=== PATIENT | male | born 1955 | race African-American/Black ===

== ENCOUNTER 2017-06-03 14:31 | Observation (INO) | payer MEDICARE ==
[2017-06-03] MEDS ORDERED: Nitroglycerin 0.4 MG TAB (25 Tab Bottle) ONE (14:54)
[2017-06-03 14:57] LABS: #Eosinphils 0.2 thou/uL (0.0-0.7); #Lymphocytes 1.7 thou/uL (1.20-3.40); #Monocytes 0.5 thou/uL (0.11-0.59); #Neutrophils 3.9 thou/uL (1.40-6.50); %Basophils 0.5 % (0.0-1.0); %Lymphocytes 27.7 % (21.0-51.0); %Monocytes 7.2 % (0.0-10.0); %Neutrophils 61.6 % (42.0-75.0); Hemoglobin 12.4 g/dL (14.0-18.0); Mean Corpuscular HGB CONC 31.5 g/dL (32.0-36.0); Mean Corpuscular Hemoglobin 28.9 pg (27.0-31.0); Mean Corpuscular Volume 91.6 fl (80.0-94.0); Mean Platelet Volume 8.7 fL (7.4-10.4); Platelet Count 154 thou/uL (130-400); RBC Distribution Width 13.1 % (11.5-14.5); White Blood Cell (WBC) Count 6.3 thou/uL (4.8-10.8)
[2017-06-03 15:16] LABS: ALT (SGPT) 7 U/L (8-55); AST (SGOT) 13 U/L (5-34); Albumin 3.9 g/dL (3.4-4.8); Alkaline Phosphatase 70 U/L (40-150); Anion Gap 21 mmol/L (10-20); BUN (Urea Nitrogen) 70 mg/dL (8.4-25.7); Bilirubin, Total 0.8 mg/dL (0.2-1.2); CK (CPK) 176 U/L (30-200); Calc. Creatinine Clearance 0 mL/min (70-130); Calcium 9.1 mg/dL (7.8-10.44); Carbon Dioxide 21 mmol/L (23-31); Chloride 102 mmol/L (98-107); Estimated GFR-MDRD 4; Globulin 3.9 g/dL (2.4-3.5); Glucose 79 mg/dL (80-115); Potassium 4.8 mmol/L (3.5-5.1); Protein, Total 7.8 g/dL (5.8-8.1); Sodium 139 mmol/L (136-145)
[2017-06-03 15:19] LABS: CKMB 1.5 ng/mL (0-6.6); Troponin I 0.076 ng/mL (< 0.028)
--- NOTE | 2017-06-03 16:09 | RAD ---
RADIOGRAPH CHEST 1 VIEW: HISTORY: 61-year-old male with acute chest pain. FINDINGS: There are no air space densities, pulmonary edema, pneumothorax, or cardiomegaly. The lateral costop hrenic angles are sharp. There is a single lead left subclavian AICD. IMPRESSION: 1. No acute cardiopulmonary findings. 2. Automatic implantable cardioverter/defibrillator ryanne POS: [facility]
[2017-06-03] MEDS ORDERED: Nitroglycerin 0.4 MG TAB (25 Tab Bottle) SL PRN (17:10)
[2017-06-03] MEDS ORDERED: traMADol HCl 50 MG TAB PO PRN (17:10)
[2017-06-03] MEDS ORDERED: Loratadine 10 MG TAB PO PRN (17:10)
[2017-06-03] MEDS ORDERED: Diabetic Tussin 200 MG/10 ML UDCUP PO PRN (17:10)
[2017-06-03] MEDS ORDERED: Ondansetron HCl/PF 4 MG/2 ML Vial IVP PRN (17:10)
[2017-06-03] MEDS ORDERED: Mag-Al 1200 mg/1200 mg/30 ML UDCUP PO PRN (17:10)
[2017-06-03] MEDS ORDERED: cloNIDine 0.1 MG TAB PO PRN (17:10)
[2017-06-03] MEDS ORDERED: Calcium Carbonate 500 MG ChewTAB PO PRN (17:10)
[2017-06-03] MEDS ORDERED: Lorazepam 1 MG TAB PO PRN (17:10)
[2017-06-03] MEDS ORDERED: hydrALAZINE 20 MG/ML VIAL SLOW IVP PRN (17:10)
[2017-06-03] MEDS ORDERED: Senokot 8.6 MG TAB PO PRN ×2 (17:10)
[2017-06-03] MEDS ORDERED: Benzonatate 100 MG CAP PO PRN (17:10)
[2017-06-03] MEDS ORDERED: Bisacodyl 5 MG TAB PO PRN ×2 (17:10)
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
[2017-06-03 17:22] VITALS: BMI 30.5
[2017-06-03] MEDS: Acetaminophen 325 MG TAB PO PRN (18:16)
[2017-06-03 18:58] LABS: Troponin I 0.087 ng/mL (< 0.028)
[2017-06-03] MEDS: Heparin 5,000 UNITS/ML VIAL SC SCH (19:35)
[2017-06-03 21:09] LABS: Troponin I 0.074 ng/mL (< 0.028)
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
[2017-06-04 02:49] VITALS: TEMP 98.1
[2017-06-04 04:57] LABS: #Eosinphils 0.1 thou/uL (0.0-0.7); #Lymphocytes 1.3 thou/uL (1.20-3.40); #Monocytes 0.4 thou/uL (0.11-0.59); #Neutrophils 3.5 thou/uL (1.40-6.50); %Basophils 0.2 % (0.0-1.0); %Eosinophils 2.7 % (0.0-10.0); %Lymphocytes 24.3 % (21.0-51.0); %Monocytes 6.6 % (0.0-10.0); %Neutrophils 66.1 % (42.0-75.0); Hemoglobin 11.8 g/dL (14.0-18.0); Mean Corpuscular HGB CONC 32.4 g/dL (32.0-36.0); Mean Corpuscular Hemoglobin 28.9 pg (27.0-31.0); Mean Corpuscular Volume 89.4 fl (80.0-94.0); Mean Platelet Volume 8.2 fL (7.4-10.4); Platelet Count 140 thou/uL (130-400); Red Blood Cell (RBC) Count 4.09 mill/uL (4.70-6.10); White Blood Cell (WBC) Count 5.3 thou/uL (4.8-10.8)
[2017-06-04 05:21] LABS: Anion Gap 18 mmol/L (10-20); BUN (Urea Nitrogen) 80 mg/dL (8.4-25.7); Calc. Creatinine Clearance 6 mL/min (70-130); Calcium 8.7 mg/dL (7.8-10.44); Carbon Dioxide 22 mmol/L (23-31); Chloride 104 mmol/L (98-107); Estimated GFR-MDRD 4; Glucose 76 mg/dL (80-115); Potassium 4.5 mmol/L (3.5-5.1); Sodium 139 mmol/L (136-145)
[2017-06-04 05:40] LABS: HBSAg Index 0.22 S/CO (0-0.99); Hep B Surf Ag Non-Reactive S/CO (NonReactive)
[2017-06-04 07:51] LABS: Hep B Surf AB Reactive (NonReactive)
--- NOTE | 2017-06-04 08:56 | PRG ---
DATE OF SERVICE: 06/04/2017 SUBJECTIVE: Mr. Orozco is a 61-year-old black male with ESRD and currently on maintenance hemodialysi s. I am at the bedside supervising his dialysis. The patient was admitted for chest pain with some mild shortness of breath. He is being ruled out for myocardial infarction. He has no new complaints today. He tells me the chest pain and shortness of breath is much improved. PHYSICAL EXAMINATION: VITAL SIGNS: Blood pressure 156/83, heart rate 85, respiratory rate 20, temperature 98.1, pulse ox 9 2%. GENERAL EXAM: Noted to be awake, alert, comfortable, not in distress. SKIN: Adequate turgor. HEENT: Pinkish conjunctivae, anicteric sclerae. NECK: No neck mass, no carotid bruits, no JVD. CHEST: No deformities. LUNGS: Clear breath sounds, no wheezing, no crackles. HEART: Normal sinus rhythm. No murmur, no gallops, no rubs. ABDOMEN: Globular, soft, nontender, no masses. EXTREMITIES: No edema, no deformities. Medications of 06/04/2017 reviewed. LABORATORY DATA: Laboratories of 06/04/2017, white count 5.3, hemoglobin 11.8, sodium 139, potassium 4.5, chloride 104, carbon dioxide 22, BUN 80, creatinine 15.7, glucose 76, calcium 8.7. Troponin I is 0.074. BNP is 1117.7. ASSESSMENT AND PLAN: 1. End-stage renal disease, stable. Continuing current Sunday, Sunday, Sunday hemodialysis regim en. Again, fluid removal only as tolerated. Targeting 3.5 liters of fluid today. 2. Chest pain/shortness of breath, clinically improved. Agree with current management.
[2017-06-04] MEDS: Heparin 5,000 UNITS/ML VIAL SC SCH (11:20)
[2017-06-04] MEDS: Acetaminophen 325 MG TAB PO PRN (14:10)
[2017-06-04] MEDS ORDERED: HYDROcodone/Acetaminophen 10/325 mg Tablet PO PRN (14:18)
[2017-06-04] MEDS ORDERED: hydrALAZINE 25 MG TAB PO SCH (15:00)
[2017-06-04] MEDS ORDERED: cloNIDine 0.2 MG TAB PO SCH (15:00)
[2017-06-04 15:21] VITALS: BP 139/95
[2017-06-04] MEDS ORDERED: Sevelamer Carbonate 800 MG TAB PO SCH (17:00)
[2017-06-04] MEDS ORDERED: Ezetimibe 10 MG TAB PO SCH (21:00)
[2017-06-04] MEDS ORDERED: Carvedilol 25 MG TAB PO SCH (21:00)
--- NOTE | 2017-06-04 21:10 | DIS ---
DATE OF ADMISSION: 06/03/2017 DATE OF DISCHARGE: 06/04/2017 DISCHARGE DIAGNOSES: 1. Acute volume overload secondary to end-stage renal disease. 2. Acute dyspnea secondarily to #1, resolved. 3. End-stage renal disease with hemodialysis, stable. 4. Hypertension, labile. 5. Question of cardiomyopathy, status post AICD placement, normal functioning device. CONSULTATION: Dr. Blanchard with Nephrology Service. PERTINENT LABORATORY AND X-RAY FINDINGS: Creatinine ranged between 14.82-15.73 with estimated GFR of 4. Calcium ranged between 8.7-9.1. Potassium ranged between 4.5-4.8. Troponin I ranged between 0. 074-0.087. BNP 1118, previously noted 110 on 09/12/2013. Plasma alcohol level less than 10. Hepati tis B antigen and antibody negative. Portable chest x-ray dated 06/03/2017 showed no acute cardiopul monary process. HOSPITAL COURSE: Patient was observed on the telemetry unit after presenting with acute shortness of breath and chest pain. The patient was noted with volume overload in the context of end-stage renal disease, undergoing hemodialysis at the direction of Nephrology Service. The patient tolerated hemo dialysis without further complication, but was noted with labile hypertension, improving with overall volume removal. The patient was resumed on his home antihypertensive regimen with overall stabiliza tion of blood pressure trend. The patient underwent general evaluation of his AICD device showing no rmal functioning mechanism. The patient also underwent 2D transthoracic echocardiogram with final re sults pending at the time of this dictation. Overall, patient is overall clinically stable with tele metry monitoring showing a sinus mechanism without evidence of acute arrhythmia or dysrhythmia. The patient overall is at baseline functional status with stable vital signs and ready for discharge on 0 06/04/2017. DISCHARGE MEDICATIONS: 1. Coreg 50 mg p.o. b.i.d. 2. Clonidine 0.2 mg p.o. t.i.d. 3. Zetia 10 mg p.o. at bedtime. 4. Lasix 20 mg p.o. daily. 5. Hydralazine 50 mg p.o. t.i.d. 6. Herreid 10/325 mg 1 tab p.o. q.4-6 hours p.r.n. pain. 7. Isosorbide mononitrate 30 mg p.o. daily. 8. Lisinopril 5 mg p.o. daily. 9. Renvela 800 mg p.o. t.i.d. FOLLOWUP: Patient may follow up with his primary care provider, Dr. Jerel Vargas within 7 days of camila penny. The patient may follow up with Dr. Blanchard with Nephrology Service during hemodialysis Sunday, Sunday, and Sunday. CONDITION ON DISCHARGE: Stable. ACTIVITY: Ad arjun. DIET: Renal. CODE STATUS: FULL. DISPOSITION: Home 06/04/2017.
[2017-06-05] MEDS ORDERED: Lisinopril 5 MG TAB PO SCH (09:00)
[2017-06-05] MEDS ORDERED: Furosemide 20 MG TAB PO SCH (09:00)
== END 2017-06-04 16:42 | disposition home or self-care (01) ==
LOC: ERS 14:31 → 2SW 16:08
PROVIDERS: ADMIT Internal Medicine; ATTEND Internal Medicine
DX: Q61.2 Polycystic kidney, adult type (principal); I12.0 Hypertensive chronic kidney disease with stage 5 chronic kidney disease or end stage renal disease; E11.22 Type 2 diabetes mellitus with diabetic chronic kidney disease; N18.6 End stage renal disease; E87.70 Fluid overload, unspecified; N17.9 Acute kidney failure, unspecified; E78.5 Hyperlipidemia, unspecified; I42.9 Cardiomyopathy, unspecified; E87.2 Acidosis; R07.9 Chest pain, unspecified; I25.10 Atherosclerotic heart disease of native coronary artery without angina pectoris; K21.9 Gastro-esophageal reflux disease without esophagitis; Z87.891 Personal history of nicotine dependence; Z99.2 Dependence on renal dialysis; Z95.810 Presence of automatic (implantable) cardiac defibrillator; Z98.890 Other specified postprocedural states
CPT/HCPCS: 71045; 80048; 80053; 80307; 82550; 82553; 83880; 84484 ×2; 85025 ×2; 86706; 87340; 93005; 93306; 94760; 96374; 97139; 99285; G0378; 36415; 90935; G0257; J1644; J2405

== ENCOUNTER 2017-06-12 11:09 | Emergency (ER) | payer MEDICARE ==
[2017-06-12 11:35] LABS: #Eosinphils 0.1 thou/uL (0.0-0.7); #Lymphocytes 1.5 thou/uL (1.20-3.40); #Monocytes 0.4 thou/uL (0.11-0.59); #Neutrophils 3.4 thou/uL (1.40-6.50); %Basophils 0.4 % (0.0-1.0); %Eosinophils 2.3 % (0.0-10.0); %Lymphocytes 26.8 % (21.0-51.0); %Monocytes 7.7 % (0.0-10.0); %Neutrophils 62.8 % (42.0-75.0); Hemoglobin 12.2 g/dL (14.0-18.0); Mean Corpuscular HGB CONC 32.1 g/dL (32.0-36.0); Mean Corpuscular Hemoglobin 28.9 pg (27.0-31.0); Mean Corpuscular Volume 89.9 fl (80.0-94.0); Mean Platelet Volume 8.5 fL (7.4-10.4); Platelet Count 150 thou/uL (130-400); RBC Distribution Width 13.2 % (11.5-14.5); Red Blood Cell (RBC) Count 4.24 mill/uL (4.70-6.10); White Blood Cell (WBC) Count 5.5 thou/uL (4.8-10.8)
--- NOTE | 2017-06-12 11:38 | RAD ---
CHEST ONE VIEW: History: Chest pain. Comparison: 06-03-17 FINDINGS: Cardiac silhouette is magnified by projection. Pulmonary vasculature is slightly engorged with mild p atchy bibasilar infiltrate. Mediastinum is midline with a single lead left subclavian cardiac defibri llator. No lobar consolidation or evidence of pneumothorax. IMPRESSION: Mild pulmonary vascular congestion. POS: [facility]
[2017-06-12 11:54] LABS: INR-International Normal Ratio 1.1; PTT 36.5 SEC (22.9-36.1); Prothrombin Time 14.3 SEC (12.0-14.7)
[2017-06-12 12:04] LABS: Troponin I 0.069 ng/mL (< 0.028)
[2017-06-12 12:06] LABS: ALT (SGPT) 9 U/L (8-55); AST (SGOT) 17 U/L (5-34); Albumin 3.8 g/dL (3.4-4.8); Alkaline Phosphatase 63 U/L (40-150); Anion Gap 21 mmol/L (10-20); BUN (Urea Nitrogen) 40 mg/dL (8.4-25.7); Bilirubin, Total 0.5 mg/dL (0.2-1.2); CK (CPK) 143 U/L (30-200); Calc. Creatinine Clearance 0 mL/min (70-130); Calcium 8.7 mg/dL (7.8-10.44); Carbon Dioxide 25 mmol/L (23-31); Chloride 101 mmol/L (98-107); Estimated GFR-MDRD 6; Globulin 3.8 g/dL (2.4-3.5); Glucose 68 mg/dL (80-115); Potassium 4.5 mmol/L (3.5-5.1); Protein, Total 7.6 g/dL (5.8-8.1); Sodium 142 mmol/L (136-145)
== END 2017-06-12 15:46 | disposition home or self-care (01) ==
LOC: ERS 11:09
DX: Z45.02 Encounter for adjustment and management of automatic implantable cardiac defibrillator (principal); E78.5 Hyperlipidemia, unspecified; I12.0 Hypertensive chronic kidney disease with stage 5 chronic kidney disease or end stage renal disease; N18.6 End stage renal disease; I42.9 Cardiomyopathy, unspecified; Z79.899 Other long term (current) drug therapy
CPT/HCPCS: 71045; 80053; 82553; 83880; 84484; 85025; 85610; 85730; 93005

== ENCOUNTER 2017-07-30 06:34 | Emergency (ER) | payer MEDICARE ==
[2017-07-30 07:35] LABS: #Eosinphils 0.1 thou/uL (0.0-0.7); #Lymphocytes 1.5 thou/uL (1.20-3.40); #Monocytes 0.5 thou/uL (0.11-0.59); #Neutrophils 3.9 thou/uL (1.40-6.50); %Basophils 0.1 % (0.0-1.0); %Eosinophils 2.4 % (0.0-10.0); %Lymphocytes 24.5 % (21.0-51.0); %Monocytes 7.6 % (0.0-10.0); %Neutrophils 65.4 % (42.0-75.0); Hemoglobin 8.8 g/dL (14.0-18.0); Mean Corpuscular HGB CONC 31.1 g/dL (32.0-36.0); Mean Corpuscular Hemoglobin 27.7 pg (27.0-31.0); Mean Platelet Volume 6.8 fL (7.4-10.4); Platelet Count 199 thou/uL (130-400); RBC Distribution Width 14.1 % (11.5-14.5); Red Blood Cell (RBC) Count 3.16 mill/uL (4.70-6.10)
[2017-07-30] MEDS ORDERED: Metoprolol Tartrate 50 MG TAB ONE (07:41)
[2017-07-30 08:08] LABS: ALT (SGPT) 7 U/L (8-55); AST (SGOT) 14 U/L (5-34); Albumin 3.4 g/dL (3.4-4.8); Alkaline Phosphatase 82 U/L (40-150); Anion Gap 13 mmol/L (10-20); BUN (Urea Nitrogen) 37 mg/dL (8.4-25.7); Bilirubin, Total 0.4 mg/dL (0.2-1.2); Calc. Creatinine Clearance 0 mL/min (70-130); Calcium 9.4 mg/dL (7.8-10.44); Carbon Dioxide 25 mmol/L (23-31); Chloride 104 mmol/L (98-107); Estimated GFR-MDRD 4; Globulin 3.4 g/dL (2.4-3.5); Glucose 92 mg/dL (80-115); Potassium 4.9 mmol/L (3.5-5.1); Protein, Total 6.8 g/dL (5.8-8.1); Sodium 137 mmol/L (136-145)
[2017-07-30 08:11] LABS: CKMB 0.6 ng/mL (0-6.6); Troponin I 0.051 ng/mL (< 0.028)
--- NOTE | 2017-07-30 09:59 | RAD ---
RADIOGRAPH CHEST 1 VIEW: Date: 07/30/17 Time: 0902 HOURS HISTORY: 62-year-old male with high fever. COMPARISON: 06/12/17. FINDINGS: Sternotomy wires, prosthetic cardiac valve metallic annulus, and signs of CABG, are all new since the prior study. The left subclavian single lead AICD remains. There is a new finding of mild cardiomega ly. There is another new finding of complete silhouetting of the left hemidiaphragm and blunting of t he left lateral costophrenic angle. Minimal upper lobe pulmonary vascular prominence without ethel pu lmonary alveolar edema. Dense opacification of retrocardiac portion of left lower lobe. Mildly increa sed patchy density at right medial lung base, small. No pneumothorax. IMPRESSION: 1. Left pleural effusion and questionable small right pleural effusion. 2. Left lower lobe atelectasis versus pneumonia. 3. Evidence for coronary artery bypass graft surgery is evidence for coronary atherosclerotic diseas e. 4. Left-sided automatic implantable cardioverter-defibrillator. 5. Cardiomegaly. 6. Continued follow-up recommended. JAYA [] POS: [facility]
--- NOTE | 2017-09-07 14:44 | EKG ---
Test Reason : Blood Pressure : / mmHG Vent. Rate : 134 BPM Atrial Rate : 134 BPM P-R Int : 000 ms QRS Dur : 082 ms QT Int : 296 ms P-R-T Axes : 269 -01 138 degrees QTc Int : 442 ms Unusual P axis and short SC, probable junctional tachycardia Abnormal ECG Confirmed by AYALA CAMILO, IFRAH ([id number]), editorial clerk HUI CHU ([id number] on 09/07/2017 2:44:31 PM Referred By: Confirmed By:IFRAH CAI MD
== END 2017-07-30 10:45 | disposition home or self-care (01) ==
LOC: ERS 06:34
DX: R00.0 Tachycardia, unspecified (principal); R50.9 Fever, unspecified; I12.0 Hypertensive chronic kidney disease with stage 5 chronic kidney disease or end stage renal disease; N18.6 End stage renal disease; I42.9 Cardiomyopathy, unspecified; E78.5 Hyperlipidemia, unspecified; Z99.2 Dependence on renal dialysis; Z79.899 Other long term (current) drug therapy; Z86.74 Personal history of sudden cardiac arrest
CPT/HCPCS: 36415; 71045; 80053; 82553; 84484; 85025; 87040; 93005

== ENCOUNTER 2022-05-15 15:53 | Inpatient (IN) | payer MEDICARE, OTHER ==
[2022-05-15] MEDS ORDERED: HYDROcodone/Acetaminophen 10/325 mg Tablet PO PRN (16:42)
[2022-05-15 16:45] VITALS: BMI 29.0
[2022-05-15 17:57] LABS: ALT (SGPT) 13 U/L (8-55); AST (SGOT) 15 U/L (5-34); Albumin 3.9 g/dL (3.4-4.8); Alkaline Phosphatase 105 U/L (40-110); Anion Gap 17 mmol/L (10-20); BUN (Urea Nitrogen) 29 mg/dL (8.4-25.7); Calc. Creatinine Clearance 9 mL/min (70-130); Calcium 9.3 mg/dL (7.8-10.44); Carbon Dioxide 28 mmol/L (23-31); Chloride 100 mmol/L (98-107); Estimated GFR 5; Globulin 3.5 g/dL (2.4-3.5); Glucose 95 mg/dL (80-115); Potassium 5.3 mmol/L (3.5-5.1); Protein, Total 7.4 g/dL (5.8-8.1); Sodium 140 mmol/L (136-145)
[2022-05-15 18:19] LABS: #Eosinphils 0.1 thou/uL (0.0-0.7); #Lymphocytes 1.1 thou/uL (1.20-3.40); #Monocytes 0.4 thou/uL (0.11-0.59); #Neutrophils 3.2 thou/uL (1.40-6.50); %Basophils 0.5 % (0.0-1.0); %Eosinophils 2.4 % (0.0-10.0); %Lymphocytes 22.4 % (21.0-51.0); %Monocytes 8.7 % (0.0-10.0); %Neutrophils 65.9 % (42.0-75.0); Hemoglobin 12.9 g/dL (14.0-18.0); Hypochromia SLIGHT = 6-15 cells (100X) (0-5/hpf); MDiff Complete? YES; Mean Corpuscular Hemoglobin 27.2 pg (27.0-31.0); Mean Corpuscular Volume 87.7 fl (78.0-98.0); Mean Platelet Volume 9.1 fL (7.4-10.4); Platelet Count 103 10x3/uL (130-400); Platelet Morphology Comment Appears Decreased; Polychromasia SLIGHT = 2-3 cells (100X) (0-2/hpf); Red Blood Cell (RBC) Count 4.74 mill/uL (4.70-6.10); White Blood Cell (WBC) Count 4.9 10x3/uL (4.8-10.8)
[2022-05-15] MEDS ORDERED: Carvedilol 6.25 MG TAB PO SCH (18:45)
[2022-05-15] MEDS: traZODone HCl 50 MG TAB PO SCH (20:27)
[2022-05-15] MEDS: hydrALAZINE 25 MG TAB PO SCH (20:30)
[2022-05-15] MEDS: Carvedilol 6.25 MG TAB PO SCH (21:54)
[2022-05-16 06:07] LABS: Anion Gap 16 mmol/L (10-20); BUN (Urea Nitrogen) 37 mg/dL (8.4-25.7); Calc. Creatinine Clearance 8 mL/min (70-130); Calcium 9.1 mg/dL (7.8-10.44); Carbon Dioxide 29 mmol/L (23-31); Chloride 99 mmol/L (98-107); Estimated GFR 5; Glucose 75 mg/dL (80-115); Potassium 5.7 mmol/L (3.5-5.1); Sodium 138 mmol/L (136-145)
[2022-05-16] MEDS ORDERED: Losartan 25 MG TAB PO SCH (09:00)
[2022-05-16] MEDS ORDERED: Heparin 10,000 UNITS/ 10 ML VIAL ONE (09:03)
[2022-05-16] MEDS ORDERED: Carvedilol 6.25 MG TAB PO SCH (09:14)
[2022-05-16 09:24] LABS: HBSAg Index 0.29 S/CO (0-0.99); Hep B Core Total Ab Non-Reactive (NonReactive); Hep B Core Total Index 0.11 S/CO (0-0.79); Hep B Surf Ag Non-Reactive S/CO (NonReactive); Hep C IgG Ab Non-Reactive (NonReactive); Hep C Index 0.17 S/CO (0-0.79)
[2022-05-16 09:27] LABS: HBSAB Concentration 87.61 mIU/mL; Hep B Surf AB Reactive (NonReactive)
[2022-05-16] MEDS: Carvedilol 6.25 MG TAB PO SCH (09:41)
[2022-05-16] MEDS ORDERED: Carvedilol 25 MG TAB PO SCH (09:45)
[2022-05-16] MEDS: Aspirin 81 mg Enteric Coated Tablet PO SCH (09:53)
[2022-05-16] MEDS: hydrALAZINE 25 MG TAB PO SCH ×3 (09:53→22:27)
[2022-05-16] MEDS ORDERED: Ondansetron PF 4 MG/2 ML Vial IVP PRN (17:01)
[2022-05-16] MEDS ORDERED: CEFAZOLIN 2 GM in Sodium Chloride 0.9% 100 ML IVPB SCH (18:00)
[2022-05-16 18:57] LABS: SARS-CoV-2 NAA Rapid Test DETECTED (NotDetected)
[2022-05-16] MEDS ORDERED: Acetaminophen 500 MG TAB PO PRN (22:02)
[2022-05-16] MEDS ORDERED: Pharmacy to Dose REMDESIVIR IVPB PRN (22:23)
[2022-05-16] MEDS: traZODone HCl 50 MG TAB PO SCH (22:27)
[2022-05-16] MEDS: Carvedilol 25 MG TAB PO SCH (22:28)
[2022-05-17] MEDS ORDERED: Dextrose 50% Abboject 50 ML SYRINGE SLOW IVP PRN (00:16)
[2022-05-17] MEDS ORDERED: HumaLOG 300 UNITS/3 ML VIAL SC PRN ×2 (00:16)
[2022-05-17] MEDS ORDERED: Dextrose 5% in Water 1,000 ML IV PRN (00:16)
[2022-05-17] MEDS ORDERED: Ipratropium/Albuterol 3 ML NEB NEB PRN (00:18)
[2022-05-17] MEDS ORDERED: guaiFENesin 200 MG TAB PO PRN (01:00)
[2022-05-17 07:03] LABS: #Lymphocytes 0.3 thou/uL (1.20-3.40); #Monocytes 0.2 thou/uL (0.11-0.59); #Neutrophils 3.5 thou/uL (1.40-6.50); %Eosinophils 0.7 % (0.0-10.0); %Lymphocytes 7.3 % (21.0-51.0); %Monocytes 5.7 % (0.0-10.0); %Neutrophils 86.4 % (42.0-75.0); Hemoglobin 12.6 g/dL (14.0-18.0); Mean Corpuscular HGB CONC 31.2 g/dL (32.0-36.0); Mean Corpuscular Hemoglobin 27.2 pg (27.0-31.0); Mean Corpuscular Volume 87.2 fl (78.0-98.0); Mean Platelet Volume 9.1 fL (7.4-10.4); Platelet Count 87 10x3/uL (130-400); RBC Distribution Width 15.2 % (11.5-14.5); Red Blood Cell (RBC) Count 4.62 mill/uL (4.70-6.10)
[2022-05-17 07:18] LABS: Anion Gap 19 mmol/L (10-20); BUN (Urea Nitrogen) 23 mg/dL (8.4-25.7); Calc. Creatinine Clearance 12 mL/min (70-130); Calcium 9.4 mg/dL (7.8-10.44); Carbon Dioxide 26 mmol/L (23-31); Chloride 97 mmol/L (98-107); Estimated GFR 7; Glucose 78 mg/dL (80-115); Potassium 4.8 mmol/L (3.5-5.1); Sodium 137 mmol/L (136-145)
[2022-05-17] MEDS: Carvedilol 25 MG TAB PO SCH (08:11)
[2022-05-17] MEDS: Aspirin 81 mg Enteric Coated Tablet PO SCH (08:26)
[2022-05-17] MEDS: hydrALAZINE 25 MG TAB PO SCH ×2 (08:27→16:19)
[2022-05-17] MEDS ORDERED: Zinc Sulfate 220 MG CAP PO SCH (09:00)
[2022-05-17] MEDS ORDERED: Iopamidol 300 61% 100 ML VIAL FS ONE (09:18)
[2022-05-17 11:54] VITALS: TEMP 98.2
[2022-05-17] MEDS ORDERED: Ipratropium/Albuterol 3 ML NEB ONE (12:28)
[2022-05-17 16:20] VITALS: BP 134/79
[2022-05-17] MEDS ORDERED: Atorvastatin Calcium 40 MG TAB PO SCH (21:00)
== END 2022-05-17 18:02 | disposition home or self-care (01) | DRG 314 ==
LOC: SURG A 15:53
PROVIDERS: ADMIT Specialist; ATTEND Specialist
PROC: 8E0ZXY6 Isolation (ICD-10-PCS; 2022-05-16)
PROC: 5A1D70Z Performance of Urinary Filtration, Intermittent, Less than 6 Hours Per Day (ICD-10-PCS; 2022-05-16)
PROC: B51W1ZZ Fluoroscopy of Dialysis Shunt/Fistula using Low Osmolar Contrast (ICD-10-PCS; principal; 2022-05-17)
DX: T82.510A Breakdown (mechanical) of surgically created arteriovenous fistula, initial encounter (principal); N18.6 End stage renal disease; U07.1 COVID-19; Q61.3 Polycystic kidney, unspecified; N25.81 Secondary hyperparathyroidism of renal origin; I13.0 Hypertensive heart and chronic kidney disease with heart failure and stage 1 through stage 4 chronic kidney disease, or unspecified chronic kidney disease; T82.7XXA Infection and inflammatory reaction due to other cardiac and vascular devices, implants and grafts, initial encounter; I25.10 Atherosclerotic heart disease of native coronary artery without angina pectoris; E78.5 Hyperlipidemia, unspecified; E11.22 Type 2 diabetes mellitus with diabetic chronic kidney disease; I48.91 Unspecified atrial fibrillation; I25.5 Ischemic cardiomyopathy; I27.20 Pulmonary hypertension, unspecified; I08.3 Combined rheumatic disorders of mitral, aortic and tricuspid valves; E87.5 Hyperkalemia; D63.1 Anemia in chronic kidney disease; I50.9 Heart failure, unspecified; Y83.2 Surgical operation with anastomosis, bypass or graft as the cause of abnormal reaction of the patient, or of later complication, without mention of misadventure at the time of the procedure; Z79.899 Other long term (current) drug therapy; Z95.810 Presence of automatic (implantable) cardiac defibrillator; Z98.890 Other specified postprocedural states; Z82.49 Family history of ischemic heart disease and other diseases of the circulatory system; Z95.1 Presence of aortocoronary bypass graft; Z79.82 Long term (current) use of aspirin
CPT/HCPCS: 36415; 36416; 36901; 71045; 80048; 80053; 85025; 86704; 86850; 86900; 86901; 90935; 93005; 93010; 93306; 93970; G0257; J1644; J2405; J7620; Q9967; U0002

== ENCOUNTER 2022-05-28 17:01 | Inpatient (IN) | payer MEDICARE ==
[2022-05-28 18:08] LABS: #Lymphocytes 0.9 thou/uL (1.20-3.40); #Monocytes 0.2 thou/uL (0.11-0.59); #Neutrophils 3.2 thou/uL (1.40-6.50); %Basophils 0.3 % (0.0-1.0); %Eosinophils 0.4 % (0.0-10.0); %Lymphocytes 20.2 % (21.0-51.0); %Monocytes 3.6 % (0.0-10.0); %Neutrophils 75.4 % (42.0-75.0); Hemoglobin 13.1 g/dL (14.0-18.0); Mean Corpuscular HGB CONC 32.8 g/dL (32.0-36.0); Mean Corpuscular Volume 85.4 fl (78.0-98.0); Mean Platelet Volume 10.1 fL (7.4-10.4); Platelet Count 93 10x3/uL (130-400); RBC Distribution Width 15.3 % (11.5-14.5); Red Blood Cell (RBC) Count 4.67 mill/uL (4.70-6.10); White Blood Cell (WBC) Count 4.3 10x3/uL (4.8-10.8)
[2022-05-28] MEDS ORDERED: Ipratropium/Albuterol 3 ML NEB ONE (18:09)
[2022-05-28 18:19] LABS: ALT (SGPT) 14 U/L (8-55); AST (SGOT) 19 U/L (5-34); Albumin 3.7 g/dL (3.4-4.8); Alkaline Phosphatase 93 U/L (40-110); Anion Gap 18 mmol/L (10-20); BUN (Urea Nitrogen) 27 mg/dL (8.4-25.7); Bilirubin, Total 1.7 mg/dL (0.2-1.2); Calc. Creatinine Clearance 0 mL/min (70-130); Calcium 8.8 mg/dL (7.8-10.44); Carbon Dioxide 25 mmol/L (23-31); Chloride 96 mmol/L (98-107); Estimated GFR 6; Globulin 3.3 g/dL (2.4-3.5); Glucose 117 mg/dL (80-115); Potassium 4.1 mmol/L (3.5-5.1); Sodium 135 mmol/L (136-145)
[2022-05-28 18:44] LABS: CKMB 0.6 ng/mL (0-6.6)
[2022-05-28] MEDS ORDERED: Dexamethasone 10 MG/ML VIAL ONE (18:44)
[2022-05-28] MEDS ORDERED: Nitroglycerin 2% Ointment 1 INCH/1 GM Packet ONE (19:00)
[2022-05-28] MEDS ORDERED: Aspirin 325 MG TAB ONE (19:00)
[2022-05-28] MEDS ORDERED: Dextrose 5% in Water 1,000 ML IV PRN (20:09)
[2022-05-28] MEDS ORDERED: Dextrose 50% Abboject 50 ML SYRINGE SLOW IVP PRN (20:09)
[2022-05-28] MEDS ORDERED: Ondansetron PF 4 MG/2 ML Vial IVP PRN (20:16)
[2022-05-28] MEDS ORDERED: HumaLOG 300 UNITS/3 ML VIAL SC PRN ×2 (20:16)
[2022-05-28] MEDS ORDERED: Ondansetron ODT 4 MG TAB PO PRN (20:16)
[2022-05-28] MEDS ORDERED: guaiFENesin 200 MG TAB PO PRN (20:35)
[2022-05-28] MEDS: hydrALAZINE 25 MG TAB PO SCH (21:18)
[2022-05-28] MEDS: Atorvastatin Calcium 40 MG TAB PO SCH (21:18)
[2022-05-28] MEDS: traZODone HCl 50 MG TAB PO SCH (21:18)
[2022-05-28 21:24] VITALS: BMI 27.0
[2022-05-28 22:19] LABS: Troponin I 0.273 ng/mL (< 0.028)
[2022-05-29] MEDS: Ipratropium/Albuterol 3 ML NEB NEB SCH ×4 (00:28→19:07)
[2022-05-29 01:29] LABS: Critical Call Chem Troponin I RESULT DECREASING; Troponin I 0.272 ng/mL (< 0.028)
[2022-05-29 05:28] LABS: #Lymphocytes 0.3 thou/uL (1.20-3.40); #Neutrophils 2.4 thou/uL (1.40-6.50); %Basophils 0.5 % (0.0-1.0); %Eosinophils 0.2 % (0.0-10.0); %Lymphocytes 11.7 % (21.0-51.0); %Monocytes 1.5 % (0.0-10.0); %Neutrophils 86.1 % (42.0-75.0); Hemoglobin 12.3 g/dL (14.0-18.0); Mean Corpuscular HGB CONC 31.5 g/dL (32.0-36.0); Mean Corpuscular Hemoglobin 27.1 pg (27.0-31.0); Mean Platelet Volume 9.6 fL (7.4-10.4); Platelet Count 76 10x3/uL (130-400); RBC Distribution Width 15.3 % (11.5-14.5); Red Blood Cell (RBC) Count 4.53 mill/uL (4.70-6.10); White Blood Cell (WBC) Count 2.8 10x3/uL (4.8-10.8)
[2022-05-29 05:48] LABS: ALT (SGPT) 12 U/L (8-55); AST (SGOT) 13 U/L (5-34); Albumin 3.2 g/dL (3.4-4.8); Alkaline Phosphatase 80 U/L (40-110); Anion Gap 17 mmol/L (10-20); BUN (Urea Nitrogen) 33 mg/dL (8.4-25.7); Bilirubin, Total 1.4 mg/dL (0.2-1.2); Calc. Creatinine Clearance 8 mL/min (70-130); Calcium 8.9 mg/dL (7.8-10.44); Carbon Dioxide 27 mmol/L (23-31); Chloride 96 mmol/L (98-107); Estimated GFR 5; Globulin 3.2 g/dL (2.4-3.5); Glucose 185 mg/dL (80-115); Potassium 4.2 mmol/L (3.5-5.1); Protein, Total 6.4 g/dL (5.8-8.1); Sodium 136 mmol/L (136-145)
[2022-05-29] MEDS: hydrALAZINE 25 MG TAB PO SCH ×3 (09:31→19:30)
[2022-05-29] MEDS: Carvedilol 25 MG TAB PO SCH ×2 (09:31→17:49)
[2022-05-29] MEDS: Aspirin 81 mg Enteric Coated Tablet PO SCH (09:31)
[2022-05-29] MEDS: Acetaminophen 325 MG TAB PO PRN (14:27)
[2022-05-29] MEDS: traZODone HCl 50 MG TAB PO SCH (19:30)
[2022-05-29] MEDS: Atorvastatin Calcium 40 MG TAB PO SCH (19:31)
[2022-05-30] MEDS: Ipratropium/Albuterol 3 ML NEB NEB SCH ×2 (00:40→23:02)
[2022-05-30 05:03] LABS: #Lymphocytes 0.4 thou/uL (1.20-3.40); #Monocytes 0.2 thou/uL (0.11-0.59); #Neutrophils 4.8 thou/uL (1.40-6.50); %Lymphocytes 8.1 % (21.0-51.0); %Monocytes 3.8 % (0.0-10.0); Hemoglobin 13.1 g/dL (14.0-18.0); Mean Corpuscular HGB CONC 31.2 g/dL (32.0-36.0); Mean Corpuscular Hemoglobin 26.9 pg (27.0-31.0); Mean Corpuscular Volume 86.1 fl (78.0-98.0); Mean Platelet Volume 10.1 fL (7.4-10.4); Platelet Count 95 10x3/uL (130-400); RBC Distribution Width 15.5 % (11.5-14.5); Red Blood Cell (RBC) Count 4.88 mill/uL (4.70-6.10); White Blood Cell (WBC) Count 5.4 10x3/uL (4.8-10.8)
[2022-05-30 05:22] LABS: Anion Gap 22 mmol/L (10-20); BUN (Urea Nitrogen) 55 mg/dL (8.4-25.7); Calc. Creatinine Clearance 7 mL/min (70-130); Calcium 9.1 mg/dL (7.8-10.44); Carbon Dioxide 23 mmol/L (23-31); Chloride 95 mmol/L (98-107); Estimated GFR 4; Glucose 158 mg/dL (80-115); Potassium 5.2 mmol/L (3.5-5.1); Sodium 135 mmol/L (136-145)
[2022-05-30] MEDS ORDERED: Heparin 10,000 UNITS/ 10 ML VIAL ONE (08:22)
[2022-05-30 09:18] LABS: HBSAg Index 0.35 S/CO (0-0.99); Hep B Core Total Ab Non-Reactive (NonReactive); Hep B Surf Ag Non-Reactive S/CO (NonReactive); Hep C IgG Ab Non-Reactive (NonReactive); Hep C Index 0.24 S/CO (0-0.79)
[2022-05-30 09:32] LABS: HBSAB Concentration 135.85 mIU/mL; Hep B Surf AB Reactive (NonReactive)
[2022-05-30] MEDS: Acetaminophen 325 MG TAB PO PRN (12:00)
[2022-05-30] MEDS: hydrALAZINE 25 MG TAB PO SCH ×2 (13:03→16:47)
[2022-05-30] MEDS: Carvedilol 25 MG TAB PO SCH ×2 (13:03→16:47)
[2022-05-30] MEDS: Aspirin 81 mg Enteric Coated Tablet PO SCH (13:04)
[2022-05-30] MEDS: Apixaban 5 MG TAB PO SCH ×2 (13:04→20:51)
[2022-05-30] MEDS: Sacubitril 49 MG/Valsartan 51 MG TABLET PO SCH ×2 (13:05→20:51)
[2022-05-30] MEDS: Ipratropium/Albuterol Sulfate 4 GM AER IH SCH ×2 (17:45→17:58)
[2022-05-30] MEDS ORDERED: Ipratropium/Albuterol 3 ML NEB ONE (20:19)
[2022-05-30] MEDS: traZODone HCl 50 MG TAB PO SCH (20:51)
[2022-05-30] MEDS: Atorvastatin Calcium 40 MG TAB PO SCH (20:51)
[2022-05-31] MEDS: hydrALAZINE 25 MG TAB PO SCH ×2 (00:20→08:19)
[2022-05-31 05:17] LABS: #Lymphocytes 0.4 thou/uL (1.20-3.40); #Monocytes 0.2 thou/uL (0.11-0.59); %Basophils 0.5 % (0.0-1.0); %Eosinophils 0.3 % (0.0-10.0); %Lymphocytes 9.1 % (21.0-51.0); %Monocytes 3.6 % (0.0-10.0); %Neutrophils 86.6 % (42.0-75.0); Hemoglobin 11.8 g/dL (14.0-18.0); Mean Corpuscular HGB CONC 31.7 g/dL (32.0-36.0); Mean Corpuscular Hemoglobin 27.1 pg (27.0-31.0); Mean Corpuscular Volume 85.5 fl (78.0-98.0); Mean Platelet Volume 10.4 fL (7.4-10.4); Platelet Count 84 10x3/uL (130-400); RBC Distribution Width 15.4 % (11.5-14.5); Red Blood Cell (RBC) Count 4.36 mill/uL (4.70-6.10); White Blood Cell (WBC) Count 4.6 10x3/uL (4.8-10.8)
[2022-05-31 05:29] LABS: Anion Gap 14 mmol/L (10-20); BUN (Urea Nitrogen) 43 mg/dL (8.4-25.7); Calc. Creatinine Clearance 9 mL/min (70-130); Calcium 8.3 mg/dL (7.8-10.44); Carbon Dioxide 27 mmol/L (23-31); Chloride 98 mmol/L (98-107); Estimated GFR 6; Glucose 141 mg/dL (80-115); Potassium 4.2 mmol/L (3.5-5.1); Sodium 135 mmol/L (136-145)
[2022-05-31 05:34] LABS: Phosphorus 4.2 mg/dL (2.3-4.7)
[2022-05-31] MEDS: Ipratropium/Albuterol 3 ML NEB NEB SCH ×4 (07:53→23:55)
[2022-05-31] MEDS: Aspirin 81 mg Enteric Coated Tablet PO SCH (08:19)
[2022-05-31] MEDS: Sacubitril 49 MG/Valsartan 51 MG TABLET PO SCH ×2 (08:19→20:46)
[2022-05-31] MEDS: Carvedilol 25 MG TAB PO SCH ×2 (08:19→16:50)
[2022-05-31] MEDS: Apixaban 5 MG TAB PO SCH ×2 (08:19→20:46)
[2022-05-31] MEDS: Calcitriol 0.25 MCG CAP PO SCH (08:54)
[2022-05-31] MEDS ORDERED: traMADol HCl 50 MG TAB PO SCH (20:30)
[2022-05-31] MEDS: Atorvastatin Calcium 40 MG TAB PO SCH (20:46)
[2022-05-31] MEDS: traZODone HCl 50 MG TAB PO SCH (20:46)
[2022-05-31 21:23] LABS: Magnesium 2.1 mg/dL (1.6-2.6)
[2022-05-31 21:30] LABS: Troponin I 0.172 ng/mL (< 0.028)
[2022-06-01 05:03] LABS: #Eosinphils 0.1 thou/uL (0.0-0.7); #Lymphocytes 0.6 thou/uL (1.20-3.40); #Monocytes 0.2 thou/uL (0.11-0.59); #Neutrophils 3.5 thou/uL (1.40-6.50); %Basophils 0.7 % (0.0-1.0); %Eosinophils 1.3 % (0.0-10.0); %Lymphocytes 12.9 % (21.0-51.0); %Monocytes 4.8 % (0.0-10.0); %Neutrophils 80.3 % (42.0-75.0); Hemoglobin 12.1 g/dL (14.0-18.0); Mean Corpuscular HGB CONC 32.1 g/dL (32.0-36.0); Mean Corpuscular Hemoglobin 27.6 pg (27.0-31.0); Mean Corpuscular Volume 85.8 fl (78.0-98.0); Mean Platelet Volume 10.4 fL (7.4-10.4); Platelet Count 86 10x3/uL (130-400); RBC Distribution Width 15.4 % (11.5-14.5); Red Blood Cell (RBC) Count 4.38 mill/uL (4.70-6.10); White Blood Cell (WBC) Count 4.3 10x3/uL (4.8-10.8)
[2022-06-01 05:28] LABS: Anion Gap 17 mmol/L (10-20); BUN (Urea Nitrogen) 59 mg/dL (8.4-25.7); Calc. Creatinine Clearance 7 mL/min (70-130); Calcium 8.2 mg/dL (7.8-10.44); Carbon Dioxide 25 mmol/L (23-31); Chloride 96 mmol/L (98-107); Estimated GFR 5; Glucose 113 mg/dL (80-115); Potassium 4.4 mmol/L (3.5-5.1); Sodium 134 mmol/L (136-145)
[2022-06-01] MEDS: Ipratropium/Albuterol 3 ML NEB NEB SCH ×2 (07:40→13:12)
[2022-06-01] MEDS ORDERED: Carvedilol 6.25 MG TAB PO SCH (08:00)
[2022-06-01] MEDS ORDERED: Heparin 10,000 UNITS/ 10 ML VIAL ONE (08:38)
[2022-06-01 09:00] VITALS: TEMP 97.5
[2022-06-01 09:01] VITALS: BP 106/68
[2022-06-01] MEDS: Apixaban 5 MG TAB PO SCH (14:59)
[2022-06-01] MEDS: Sacubitril 49 MG/Valsartan 51 MG TABLET PO SCH (14:59)
[2022-06-01] MEDS: Calcitriol 0.25 MCG CAP PO SCH (15:09)
[2022-06-01] MEDS: Aspirin 81 mg Enteric Coated Tablet PO SCH (15:09)
== END 2022-06-01 16:30 | disposition home or self-care (01) | DRG 280 ==
LOC: ERS 17:01 → EDBD 19:46 → 2SW 19:46
PROVIDERS: ADMIT Internal Medicine; ATTEND Internal Medicine
PROC: 5A1D70Z Performance of Urinary Filtration, Intermittent, Less than 6 Hours Per Day (ICD-10-PCS; principal; 2022-05-29)
DX: I13.2 Hypertensive heart and chronic kidney disease with heart failure and with stage 5 chronic kidney disease, or end stage renal disease (principal); I50.23 Acute on chronic systolic (congestive) heart failure; I21.A1 Myocardial infarction type 2; N18.6 End stage renal disease; I48.21 Permanent atrial fibrillation; N25.81 Secondary hyperparathyroidism of renal origin; E11.22 Type 2 diabetes mellitus with diabetic chronic kidney disease; E78.00 Pure hypercholesterolemia, unspecified; D63.1 Anemia in chronic kidney disease; I25.10 Atherosclerotic heart disease of native coronary artery without angina pectoris; I42.9 Cardiomyopathy, unspecified; Z95.1 Presence of aortocoronary bypass graft; Z99.2 Dependence on renal dialysis; I25.2 Old myocardial infarction; Z95.810 Presence of automatic (implantable) cardiac defibrillator; Z79.899 Other long term (current) drug therapy
CPT/HCPCS: 36415; 36416; 71045; 80048; 80053; 82553; 83735; 83880; 83970; 84100; 84484; 85025; 86704; 90935; 93005; 93010; 94640; 96374; G0257; J1100; J1644; J3535; J7620; U0003; U0005